=== PATIENT | female | born 1950 | race American Indian/Alaskan Native ===

== ENCOUNTER 2022-01-10 06:23 | Day surgery (SDC) | payer MEDICARE ==
[2022-01-08 12:28] LABS: Hematocrit 35.2 % (30.3-42.9); Hemoglobin 11.4 gm/dl (10.1-14.3); Mean Corpuscular HGB Conc 32 % (30-34); Mean Corpuscular Volume 89 fl (79-97); Platelet Count 296 K/mm3 (140-440); Red Blood Count 3.97 M/mm3 (3.65-5.03); Red Cell Distribution Width 17.9 % (13.2-15.2)
[2022-01-08 12:44] LABS: BUN/Creatinine Ratio 10; Blood Urea Nitrogen 9 mg/dL (7-17); Calcium 8.5 mg/dL (8.4-10.2); Hemolysis Index 3
[~2022-01-10 06:23] MED LIST: LACTATED RINGERS 1,000 ML IV SCH; SODIUM CHLORIDE 0.9% IRR 1,500 ML BOTTLE IR ONE
[2022-01-10] MEDS ORDERED: ceFAZolin/Water 2 GM/20 ML 2 GM/20 ML SYRINGE IV NR (08:00)
--- NOTE | 2022-01-10 12:40 | Anesthesia Consultation ---
Anesthesia Consult and Med Hx Date of service: 01/10/22 - Airway Anesthetic Teeth Evaluation: Edentulous ROM Head & Neck: Inadequate (limited range of motions) Mental/Hyoid Distance: Adequate Mallampati Class: Class II Intubation Access Assessment: Probably Good - Pre-Operative Health Status ASA Pre-Surgery Classification: ASA3 Proposed Anesthetic Plan: General - Pulmonary Hx Smoking: Yes (STOPPED X 18 YRS) COPD: Yes (DAILY AND PRN INHALERS) Hx Sleep Apnea: No (KEY PRE SCREEN LOW RISK) - Cardiovascular System Hx Hypertension: No Hx Coronary Artery Disease: No (high cholesterol) Hx Heart Murmur: Yes (CAUSES NO PROBLEMS) Hx Peripheral Vascular Disease: Yes (DARRION LEGS, bilateral carotid artery stents) - Central Nervous System Hx Back Pain: Yes Hx Psychiatric Problems: No - Endocrine Hx Non-Insulin Dependent Diabetes: Yes - Hematic Hx Anemia: Yes (NOT RECENT) - Other Systems Hx Alcohol Use: Yes (BEER AND WINE QD) Hx Cancer: No
--- NOTE | 2022-01-10 12:40 | Anesthesia Day of Surgery ---
Anesthesia Day of Surgery - Day of Surgery Patient Examined: Yes Patient H&P Reviewed: Yes Patient is NPO: Yes
[2022-01-10] MEDS ORDERED: SCOPOLAMINE TRANSDERMAL PATCH 72 HR TD ONE (12:45)
[2022-01-10] MEDS ORDERED: FAMOTIDINE 20 MG/2 ML INJ IV ONE (12:45)
[2022-01-10] MEDS ORDERED: MIDAZOLAM 2 MG/2 ML INJ ONE (12:45)
[2022-01-10] MEDS ORDERED: MIDAZOLAM 2 MG/2 ML INJ IV NR (13:00)
[2022-01-10] MEDS ORDERED: FAMOTIDINE 20 MG/2 ML INJ IV NR (13:00)
[2022-01-10] MEDS ORDERED: SCOPOLAMINE TRANSDERMAL PATCH 72 HR TD NR (13:00)
[2022-01-10] MEDS ORDERED: BUPIVACAINE/PF (0.5%) 5 MG/1 ML 10 ML VIAL INFILTRATI ONE (13:24)
[2022-01-10] MEDS ORDERED: LIDOCAINE MPF (2%) 20 MG/1 ML VIAL 5 ML ONE (13:45)
[2022-01-10] MEDS ORDERED: fentaNYL 100 MCG/2 ML INJ ONE (13:46)
[2022-01-10] MEDS ORDERED: propofoL 200 MG/20 ML VIAL IV ONE (13:47)
[2022-01-10] MEDS ORDERED: dexAMETHasone 20 MG/5 ML VIAL ONE (13:51)
[2022-01-10] MEDS ORDERED: ONDANSETRON 4 MG/2 ML INJ ONE (13:51)
--- NOTE | 2022-01-10 14:15 | Procedure Note ---
Date of procedure: 01/10/22 Pre-op diagnosis: Left carpal tunnel syndrome Post-op diagnosis: same Procedure: [Left] endoscopic carpal tunnel release Procedure The patient was brought to the OR placed in the OR table in supine position following induction and intubation anesthesia the patient's [left] upper extremity was prepped and draped in the usual sterile manner a timeout procedure was done to identify the patient and the correct operative site next the arm was exsanguinated followed by inflation of the pneumatic tourniquet to 250 mmHg a volar incision was made at the distal wrist crease this is taken down through skin and subcutaneous using loupe magnification the superficial flexor sheath was identified next the carpal canal was entered using dilators andthe arthroscope was inserted the patient was noted to have some tightness at the carpal canal and the transverse carpal transverse carpal ligament was identified with the arthroscope in line with the fourth metacarpal the knife blade assembly was elevated the ligament was released from distal to proximal care was taken to release the ligament as completely as possible a second look was done and it appeared that the ligament was completely released at this point The wound was irrigated and was closed in a standard routine fashion. Dressings were applied the patient tolerated the procedure there were no complications she was sent to postanesthesia recovery in stable condition Anesthesia: MAC Surgeon: MARIAN KNIGHT (Yordy Armenta, [facility] assist) Estimated blood loss: minimal Pathology: none Condition: stable Disposition: PACU
[2022-01-10] MEDS ORDERED: KETOROLAC 30 MG/1 ML INJ ONE (14:16)
[2022-01-10] MEDS ORDERED: HYDROcodone/ACETAMINOPHEN 5-325 MG TAB PO PRN (15:08)
[2022-01-10] MEDS ORDERED: HYDROmorphone 1 MG/1 ML INJ IV PRN (15:08)
[2022-01-10] MEDS ORDERED: ONDANSETRON 4 MG/2 ML INJ IV PRN (15:08)
[2022-01-10 15:41] VITALS: BP 147/75
--- NOTE | 2022-01-10 16:10 | Post Anesthesia Evaluation ---
- Post Anesthesia Evaluation Patient Participated: Yes Airway Patent: Yes Stable Respiratory Function: Yes Nausea/Vomiting: No Temp > 96.8F: Yes Pain Manageable: Yes Adequeate Hydration: Yes Anesthesia Complications: No
== END 2022-01-10 16:30 | disposition home or self-care (01) ==
LOC: OR 06:23
PROVIDERS: ATTEND Orthopaedic Surgery
DX: G56.02 Carpal tunnel syndrome, left upper limb (principal); Z20.822 Contact with and (suspected) exposure to COVID-19; E78.00 Pure hypercholesterolemia, unspecified; M19.90 Unspecified osteoarthritis, unspecified site; E11.51 Type 2 diabetes mellitus with diabetic peripheral angiopathy without gangrene; I73.9 Peripheral vascular disease, unspecified; Z79.84 Long term (current) use of oral hypoglycemic drugs; Z79.899 Other long term (current) drug therapy; Z79.82 Long term (current) use of aspirin; Z87.891 Personal history of nicotine dependence; Z98.41 Cataract extraction status, right eye; Z90.49 Acquired absence of other specified parts of digestive tract; Z72.89 Other problems related to lifestyle; Z98.890 Other specified postprocedural states
CPT/HCPCS: 29848; 36415; 80048; 82962; 85027; J0690; J1100; J1170; J1885; J2250; J2405; J2704; J3010; J3490; J7120; U0003